=== PATIENT | male | born 1970 | race Caucasian/White ===

== ENCOUNTER 2018-03-02 18:15 | Emergency (ER) | payer MEDICAID ==
[~2018-03-02] VITALS: Ht 175.3 cm; Wt 83.0 kg
[2018-03-02 18:29] VITALS: BP 112/81
[2018-03-02] MEDS ORDERED: HYDROcodone/APAP 5/325 TABLET ONE (19:25)
[2018-03-02] MEDS ORDERED: HYDROcodone/APAP 5/325 TABLET PO ONE (19:30)
== END 2018-03-02 19:39 | disposition home or self-care (01) ==
LOC: ED 19:19
DX: M10.072 Idiopathic gout, left ankle and foot (principal); M10.071 Idiopathic gout, right ankle and foot; M13.0 Polyarthritis, unspecified; Z88.0 Allergy status to penicillin
CPT/HCPCS: 99283

== ENCOUNTER 2018-03-05 07:15 | Emergency (ER) | payer MEDICAID ==
[~2018-03-05] VITALS: Ht 175.3 cm; Wt 82.4 kg
[2018-03-05 07:19] VITALS: BP 124/78
== END 2018-03-05 08:00 | disposition home or self-care (01) ==
LOC: ED 07:54
DX: L03.115 Cellulitis of right lower limb (principal); Z76.0 Encounter for issue of repeat prescription; F17.210 Nicotine dependence, cigarettes, uncomplicated
CPT/HCPCS: 99283

== ENCOUNTER 2018-03-16 11:26 | Emergency (ER) | payer MEDICAID ==
[~2018-03-16] VITALS: Ht 175.3 cm; Wt 84.4 kg
[2018-03-16 11:36] VITALS: BP 112/74
== END 2018-03-16 12:36 | disposition home or self-care (01) ==
LOC: ED 12:30
DX: T14.8XXA Other injury of unspecified body region, initial encounter (principal); F15.10 Other stimulant abuse, uncomplicated; X58.XXXA Exposure to other specified factors, initial encounter; Y93.89 Activity, other specified; Y92.89 Other specified places as the place of occurrence of the external cause; Y99.8 Other external cause status
CPT/HCPCS: 99281; 99283